=== PATIENT | female | born 1990 ===

== ENCOUNTER 2021-06-09 12:18 | Emergency (ER) | payer MEDICAID, OTHER ==
[~2021-06-09] VITALS: Ht 172.7 cm; Wt 72.6 kg
[2021-06-09 13:11] VITALS: BP 120/69
[2021-06-09] MEDS ORDERED: AMOX500T86 PO (13:18)
== END 2021-06-09 13:34 | disposition home or self-care (01) ==
LOC: ER 12:18
DX: S50.812A Abrasion of left forearm, initial encounter (principal); S60.311A Abrasion of right thumb, initial encounter; Z59.00 Homelessness unspecified; Z79.2 Long term (current) use of antibiotics; Z91.018 Allergy to other foods; W55.03XA Scratched by cat, initial encounter; Y93.89 Activity, other specified; Y92.89 Other specified places as the place of occurrence of the external cause; Y99.8 Other external cause status